=== PATIENT | male | born 1950 ===

== ENCOUNTER → 2025-01-03 | Outpatient (CLI) | payer MEDICARE, BC, SELFPAY ==
[2025-01-03 15:15] LABS: Collection Type, Urine Clean Catch
[2025-01-03 16:35] LABS: Bacteria,Urine Rare; Bilirubin,Urine Negative (Negative); Blood,Urine 1+ (Negative); Calcium Oxalate Crystals,Urine 3+; Color,Urine Yellow (Lt Yel-Yel); Glucose, Urine Negative (Negative); Ketones,Urine Negative (Negative); Leukocyte Esterase,Urine Positive (Negative); Nitrite,Urine Negative (Negative); PH,Urine 6.5 (5.0-7.0); Protein,Urine 1+ (Neg - Trace); RBC,Urine 41 /hpf (0-3); Specific Gravity,Urine 1.023 (1.001-1.035); Squamous Epithelial Cell,Urine < 1 /hpf (0-5); Urobilinogen,Urine Negative mg/dL (0.0-1.0); WBC,Urine 17 /hpf (0-5)
[2025-01-03 16:36] LABS: Clarity,Urine Cloudy (Clear/Hazy)
== END | disposition home or self-care (01) ==
LOC: SLDO 14:55
PROVIDERS: PCP Family Medicine; Referring Provider Family Medicine; Visit Provider Family Medicine
DX: N30.00 Acute cystitis without hematuria (principal)
CPT/HCPCS: 81001; 87077; 87086; 87186